=== PATIENT | female | born 1935 | race Caucasian/White ===

== ENCOUNTER 2022-08-10 17:27 | Observation (INO) ==
[2022-08-10] MEDS ORDERED: ONDANSETRON INJ 2 MG/ML 2 ML VIAL IV STA ×2 (18:08→20:53)
[2022-08-10] MEDS ORDERED: MoRPHine SULFATE 2 MG/ML CARP IV STA (18:08)
[2022-08-10] MEDS ORDERED: MoRPHine SULFATE 2 MG/ML CARP IV PRN (18:08)
[2022-08-10] MEDS ORDERED: ACETAMINOPHEN 1,000 MG/100 ML VIAL IV STA (18:08)
[2022-08-10 18:10] LABS: Basophils # (auto) 0.07 K/uL (0-0.2); Basophils % (auto) 0.8 %; Eosinophils % (auto) 2.3 %; Hematocrit (blood only) 40.2 % (37.0-47.0); Hemoglobin 13.2 g/dl (12.0-16.0); Immature Granulocytes # (auto) 0.03 K/uL (0.01-0.20); Immature Granulocytes % (auto) 0.3 %; Lymphocytes # (auto) 3.15 K/uL (1.2-3.4); Lymphocytes % (auto) 36.4 %; Mean Corpuscular Hemoglobin 33.2 pg (25.0-34.0); Mean Corpuscular Hgb Conc 32.8 g/dL (32.0-36.0); Mean Platelet Volume 9.6 fL (9.4-12.4); Monocytes # (auto) 0.81 K/uL (0.11-0.59); Monocytes % (auto) 9.4 %; Neutrophils % (auto) 50.8 %; Platelet Count 196 K/uL (130-400); RDW Coefficient of Variation 14.6 % (11.5-14.5); RDW Standard Deviation 55.2 fL (36.4-46.3); Red Blood Count 3.98 M/uL (4.20-5.40); White Blood Count 8.66 K/ul (4.8-10.8)
[2022-08-10 18:27] LABS: Albumin Globulin Ratio 1.4 (0.9-2); Albumin Level 4.2 gm/dl (3.4-5.0); BUN Creatinine Ratio 27.5 (10-20); Bilirubin,Total 1.3 mg/dl (0.2-1.0); Calcium 9.6 mg/dl (8.6-10.3); Creatinine Clr Calc Pharmacy 34.1 ml/min; Est GFR (African American) 46.7 ml/min; Est GFR (Non-African American) 40.3 ml/min; Globulin 2.9 gm/dl (2.5-4.0); Potassium 4.5 mmol/L (3.5-5.1); Total Protein 7.1 gm/dl (6.0-8.3)
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
[2022-08-10 19:54] LABS: INR 1.2 (0.9-1.1); Partial Thromboplastin Ratio 1.2; Partial Thromboplastin Time 32.5 Seconds (21.0-31.0); Prothrombin Time 13.1 Seconds (9.0-12.0)
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
[2022-08-10] MEDS ORDERED: PROMETHAZINE HCL 6.25 MG in SODIUM CHLORIDE 0.9% 50 ML IV PRN (22:01)
[2022-08-10] MEDS ORDERED: MoRPHine SULFATE 4 MG/ML 1 ML CARP\\VIAL IV PRN (22:01)
[2022-08-10] MEDS ORDERED: SODIUM CHLORIDE 0.9% 1000ML 1,000 ML IV STA (22:15)
[2022-08-10] MEDS ORDERED: APIXABAN 5 MG TABLET PO STA (22:57)
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
[2022-08-10] MEDS ORDERED: KETOROLAC TROMETHAMINE 15 MG/ML VIAL IV STA (23:04)
[2022-08-10 23:22] LABS: Magnesium 2.3 mg/dl (1.7-2.4)
[2022-08-10] MEDS ORDERED: ACETAMINOPHEN 325 MG TAB PO PRN (23:52)
[2022-08-11] MEDS: oxyCODONE HCL IR 5 MG TAB (IMMEDIATE RELEASE) PO PRN ×3 (02:55→16:10)
[2022-08-11] MEDS ORDERED: MELATONIN 3 MG TAB PO STA (03:05)
[2022-08-11] MEDS ORDERED: MELATONIN 3 MG TAB PO PRN (03:05)
[2022-08-11 06:26] LABS: Appearance Urine Clear (Clear); Bacteria Urine Automated Negative (Negative); Bilirubin Urine Negative (Negative); Blood Urine 2+ (Negative); Color Urine Dark Yellow; Epithelial Cell Urine Auto >30 /lpf (0-5); Glucose Urine UA Negative (Negative); Ketones Urine Negative (Negative); Leukocyte Esterase Urine 1+ (Negative); Nitrite Urine Negative (Negative); Protein Urine Negative (Negative); RBC Urine Automated 0-4 /hpf (0-4); Urobilinogen Urine Negative (Negative); pH Urine 5.5 (4.5-7.5)
[2022-08-11 08:01] LABS: Basophils # (auto) 0.05 K/uL (0-0.2); Basophils % (auto) 0.7 %; Eosinophils # (auto) 0.18 K/uL (0-0.50); Eosinophils % (auto) 2.4 %; Hematocrit (blood only) 34.7 % (37.0-47.0); Hemoglobin 11.2 g/dl (12.0-16.0); Immature Granulocytes # (auto) 0.02 K/uL (0.01-0.20); Immature Granulocytes % (auto) 0.3 %; Lymphocytes # (auto) 2.86 K/uL (1.2-3.4); Lymphocytes % (auto) 37.5 %; Mean Corpuscular Hemoglobin 32.7 pg (25.0-34.0); Mean Corpuscular Hgb Conc 32.3 g/dL (32.0-36.0); Mean Corpuscular Volume 101.2 fL (80.0-100.0); Mean Platelet Volume 9.8 fL (9.4-12.4); Monocytes # (auto) 0.69 K/uL (0.11-0.59); Neutrophils # (auto) 3.83 K/uL (1.40-6.50); Neutrophils % (auto) 50.1 %; Platelet Count 159 K/uL (130-400); RDW Coefficient of Variation 14.6 % (11.5-14.5); RDW Standard Deviation 54.6 fL (36.4-46.3); Red Blood Count 3.43 M/uL (4.20-5.40); White Blood Count 7.63 K/ul (4.8-10.8)
[2022-08-11 08:09] LABS: Calcium 8.4 mg/dl (8.6-10.3); Creatinine Clr Calc Pharmacy 29.4 ml/min; Est GFR (African American) 41.6 ml/min; Est GFR (Non-African American) 35.9 ml/min; Potassium 4.3 mmol/L (3.5-5.1)
--- NOTE | 2022-08-11 08:41 | Electrocardiogram Report ---
Test Reason : Blood Pressure : / mmHG Vent. Rate : 069 BPM Atrial Rate : 069 BPM P-R Int : 256 ms QRS Dur : 068 ms QT Int : 396 ms P-R-T Axes : 041 -13 -06 degrees QTc Int : 424 ms Sinus rhythm with 1st degree A-V block Possible Old Inferior infarct Abnormal ECG No previous ECGs available Confirmed by Jonathan Mendez ([id number]) on 08/11/2022 8:41:30 AM Referred By: REFERRED SELF Confirmed By:Jonathan Mendez
[2022-08-11] MEDS ORDERED: MULTIVITAMIN TAB PO SCH (09:00)
[2022-08-11] MEDS ORDERED: APIXABAN 5 MG TABLET PO SCH (09:00)
[2022-08-11] MEDS ORDERED: SPIRONOLACTONE 12.5 MG TAB PO SCH (09:00)
[2022-08-11] MEDS ORDERED: FEXOFENADINE HCL 180 MG TAB PO SCH (09:00)
[2022-08-11] MEDS ORDERED: VITAMIN B COMPLEX TAB PO SCH (09:00)
[2022-08-11] MEDS ORDERED: LOSARTAN POTASSIUM 50 MG TAB PO SCH (09:00)
[2022-08-11] MEDS: ACETAMINOPHEN 500 MG TAB PO SCH ×2 (09:11→15:19)
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
== END 2022-08-11 16:58 | disposition home or self-care (01) ==
LOC: 3W 17:27 → ED 17:27 → 3W 23:24